=== PATIENT | male | born 1945 | race Caucasian/White ===

== ENCOUNTER 2019-06-29 05:41 | Day surgery (SDC) | payer MEDICARE ==
[2019-06-25 11:07] LABS: BASOPHILS # (AUTO) 0.1 X10'3 (0-0.2); BASOPHILS % (AUTO) 1.2 % (0-1); EOSINOPHILS # (AUTO) 0.1 X10'3 (0-0.9); LYMPHOCYTES # (AUTO) 1.3 X10'3 (1.1-4.8); LYMPHOCYTES % (AUTO) 20.8 % (21-51); MEAN CORPUSCULAR HEMOGLOBIN 32.4 PG (27.0-31.0); MEAN CORPUSCULAR HGB CONC 33.8 g/dL (33.0-36.5); MEAN CORPUSCULAR VOLUME 95.7 FL (78-98); MONOCYTES # (AUTO) 0.6 X10'3 (0-0.9); MONOCYTES % (AUTO) 9.5 % (2-12); NEUTROPHILS # (AUTO) 4.2 X10'3 (1.8-7.7); NEUTROPHILS % (AUTO) 66.5 % (42-75); PRE OP HEMATOCRIT 40.9 % (42.0-52.0); PRE OP HEMOGLOBIN 13.8 g/dL (14.0-17.9); PRE OP PLATELET COUNT 154 X10'3 (140-440); RED BLOOD COUNT 4.27 X10'6 (4.70-6.10); RED CELL DISTRIBUTION WIDTH 14.9 % (11.5-14.5)
[2019-06-25 11:21] LABS: ALBUMIN 3.7 G/DL (3.4-5.0); ALBUMIN/GLOBULIN RATIO 0.9 (1.1-1.5); ALKALINE PHOSPHATASE 125 IU/L (46-116); BLOOD UREA NITROGEN 21 MG/DL (7-18); BUN/CREATININE RATIO 11.6 (5.4-32.0); CALCIUM 9.1 MG/DL (8.5-10.1); CHLORIDE 106 MMOL/L (99-107); CREATININE 1.81 MG/DL (0.60-1.10); PRE OP ALT 28 U/L (30-65); PRE OP ANION GAP 10 (8-16); PRE OP AST 25 U/L (10-37); PRE OP BILIRUB, TOTAL 2.3 MG/DL (0.0-1.0); PRE OP GLUCOSE 114 MG/DL (70-104); PRE OP POTASSIUM 3.9 MMOL/L (3.4-5.1); PRE OP SODIUM 146 MMOL/L (135-145); TOTAL PROTEIN 7.6 G/DL (6.4-8.2); eGFR 37 ML/MIN
[2019-06-25 11:32] LABS: PRE OP INR 2.3 INR
[2019-06-29] VITALS (7 sets, daily range): BP systolic 117–135; BP diastolic 64–75
[~2019-06-29] VITALS: Ht 177.8 cm; Wt 90.7 kg
[~2019-06-29 05:41] MED LIST: AMLO2.5T2 PO; ATOR40TA PO; COU4T PO; DOCUMENT DATE & TIME OF BETA-BLOCKER PO ONE; FERR324T4 PO; FURO40TA4 PO; GABA-532 PO; GLIP2.5T3 PO; LISI40TA4 PO; METO50TA7 PO; VIT D2 PO; cefazolin/dext.iso 2gm/100 ML IV ONE; famotidine 20mg tablet PO ONE; ringers solution, lacted 1,000 ML IV SCH
[2019-06-29] MEDS ORDERED: LIDOcaine 1% (10mg/ml) 2ml vial ONE (06:07)
[2019-06-29 07:15] LABS: PRE OP PROTIME 25.5 SECONDS (9.0-12.0)
[2019-06-29] MEDS ORDERED: ringers solution, lacted 1,000 ML IV SCH (07:32)
[2019-06-29] MEDS ORDERED: morphine 4 MG/ML inj SYRINge IV PRN ×2 (07:35)
[2019-06-29] MEDS ORDERED: labetalol 20mg/4ml (5mg/ml) syringe IV PRN (07:35)
[2019-06-29] MEDS ORDERED: fentaNYL/PF 50MCG/1 ML 2ML syringe IV PRN ×2 (07:35)
[2019-06-29] MEDS ORDERED: ondansetron/PF 4mg/2ml inj IV PRN (07:35)
[2019-06-29] MEDS ORDERED: hydrALAZINE 20mg/ml inj. IV PRN (07:35)
[2019-06-29] MEDS ORDERED: LIDOcaine 0.5% (5mg/ml) 50ml vial ONE (07:36)
[2019-06-29 07:52] LABS: PRE OP INR 2.6 INR
[2019-06-29] MEDS ORDERED: BUPIVAcaine/PF 2.5mg/ml (0.25%) 10ml vial ONE (08:47)
[2019-06-29] MEDS ORDERED: MIDAZolam 5mg/5ml vial ONE (09:48)
[2019-06-29] MEDS ORDERED: fentaNYL/PF 50MCG/1 ML 2ML syringe ONE (09:48)
[2019-06-29] MEDS ORDERED: propofol inj 20 ML IV ONE (09:49)
[2019-06-29] MEDS ORDERED: LIDOcaine 2% (20mg/ml) 5ml vial ONE (09:49)
--- NOTE | 2019-06-29 10:15 | NUR ---
ADMITTED TO PACU FROM OR ACCOMPANIED BY ANESTHESIA. INTIAL PHYSICAL ASSESSMENT DONE AND RECORDED. AWAKE AND RESPONSE ON ARRIVE YO PACU, REPORT RECEIVED FROM ANESTHESIA.
--- NOTE | 2019-06-29 11:10 | NUR ---
Discharge criteria met, discharge instructions given, demonstrates verbal understanding. Discharged home in good condition.
== END 2019-06-29 11:10 | disposition home or self-care (01) ==
LOC: PAS 05:41
PROVIDERS: ATTEND Orthopaedic Surgery Hand Surgery
DX: G56.03 Carpal tunnel syndrome, bilateral upper limbs (principal); I10 Essential (primary) hypertension; I25.2 Old myocardial infarction; E11.9 Type 2 diabetes mellitus without complications; M19.90 Unspecified osteoarthritis, unspecified site; E78.00 Pure hypercholesterolemia, unspecified; E66.9 Obesity, unspecified; Z68.30 Body mass index [BMI] 30.0-30.9, adult; Z95.0 Presence of cardiac pacemaker; Z95.5 Presence of coronary angioplasty implant and graft; Z79.84 Long term (current) use of oral hypoglycemic drugs; Z79.899 Other long term (current) drug therapy; Z79.01 Long term (current) use of anticoagulants; Z98.890 Other specified postprocedural states
CPT/HCPCS: 36415; 64721; 80053; 82948; 85025; 85610; 85730; J2001; J2250; J2704; J3010; J3490; A4215; J7120

== ENCOUNTER 2019-08-10 05:49 | Day surgery (SDC) | payer MEDICARE ==
[~2019-08-10] VITALS: Ht 177.8 cm; Wt 94.0 kg
[2019-08-10] VITALS (7 sets, daily range): BP systolic 91–128; BP diastolic 57–68
[~2019-08-10 05:49] MED LIST changes: -cefazolin/dext.iso 2gm/100 ML IV ONE; +cefazolin/dext.iso 2gm/50ml 50 ML IV ONE
[2019-08-10] MEDS ORDERED: BUPIVAcaine/PF 2.5mg/ml (0.25%) 10ml vial ONE (06:36)
[2019-08-10] MEDS ORDERED: LIDOcaine 0.5% (5mg/ml) 50ml vial ONE (07:06)
[2019-08-10] MEDS ORDERED: ringers solution, lacted 1,000 ML IV SCH (07:18)
[2019-08-10] MEDS ORDERED: meperidine/PF 25mg/ml syringe IV PRN ×3 (07:20)
[2019-08-10] MEDS ORDERED: ondansetron/PF 4mg/2ml inj IV PRN (07:20)
[2019-08-10] MEDS ORDERED: proCHLORperazine 10 MG/2 ml inj IV PRN (07:20)
[2019-08-10] MEDS ORDERED: morphine 4 MG/ML inj SYRINge IV PRN ×2 (07:20)
[2019-08-10 07:45] LABS: BASOPHILS # (AUTO) 0.1 X10'3 (0-0.2); BASOPHILS % (AUTO) 1.1 % (0-1); EOSINOPHILS # (AUTO) 0.1 X10'3 (0-0.9); EOSINOPHILS % (AUTO) 2.9 % (0-6); HEMATOCRIT 36.2 % (42.0-52.0); HEMOGLOBIN 12.1 g/dl (14.0-17.9); LYMPHOCYTES # (AUTO) 0.6 X10'3 (1.1-4.8); LYMPHOCYTES % (AUTO) 12.4 % (21-51); MEAN CORPUSCULAR HEMOGLOBIN 32.8 PG (27.0-31.0); MEAN CORPUSCULAR HGB CONC 33.5 g/dL (33.0-36.5); MEAN CORPUSCULAR VOLUME 98.1 FL (78-98); MEAN PLATELET VOLUME 8.7 FL (7.4-10.4); MONOCYTES # (AUTO) 0.6 X10'3 (0-0.9); MONOCYTES % (AUTO) 11.8 % (2-12); NEUTROPHILS # (AUTO) 3.6 X10'3 (1.8-7.7); NEUTROPHILS % (AUTO) 71.8 % (42-75); PLATELET COUNT 101 X10'3 (140-440); RED BLOOD COUNT 3.69 X10'6 (4.70-6.10); RED CELL DISTRIBUTION WIDTH 14.3 % (11.5-14.5)
[2019-08-10 07:58] LABS: ALANINE AMINOTRANSFERASE 25 U/L (12-78); ALBUMIN 3.4 G/DL (3.4-5.0); ALKALINE PHOSPHATASE 113 IU/L (46-116); ANION GAP 7 (8-16); ASPARTATE AMINO TRANSFERASE 27 U/L (10-37); BILIRUBIN,TOTAL 1.4 MG/DL (0.1-1.0); BLOOD UREA NITROGEN 27 MG/DL (7-18); CALCIUM 8.6 MG/DL (8.5-10.1); CHLORIDE 109 MMOL/L (99-107); GLUCOSE 148 MG/DL (70-104); SODIUM 145 MMOL/L (135-145); TOTAL CARBON DIOXIDE 29.1 MMOL/L (24-32); TOTAL PROTEIN 6.8 G/DL (6.4-8.2); eGFR 37 ML/MIN
[2019-08-10] MEDS ORDERED: fentaNYL/PF 50MCG/1 ML 2ML syringe ONE (08:51)
[2019-08-10] MEDS ORDERED: midazolam 2 mg/2 ml injection ONE (08:53)
--- NOTE | 2019-08-10 09:11 | NUR ---
Received from OR via , accompanied by Anesthesiologist DR ECHOLS and report given by Anesthesiolgist. AWAKENS TO VOICE. VITALS STABLE. DRESSING SDI. PARAS PAIN. FINGERS COOL AND PINK.
--- NOTE | 2019-08-10 10:11 | NUR ---
AWAKE AND ORIENTED. VITALS STABLE. DRESSING DI. PARAS PAIN. HOME WITH HIS AT THIS TIME.
== END 2019-08-10 10:11 | disposition home or self-care (01) ==
LOC: PAS 05:49
PROVIDERS: ATTEND Orthopaedic Surgery Hand Surgery
DX: G56.02 Carpal tunnel syndrome, left upper limb (principal); I10 Essential (primary) hypertension; I25.10 Atherosclerotic heart disease of native coronary artery without angina pectoris; I27.20 Pulmonary hypertension, unspecified; E11.9 Type 2 diabetes mellitus without complications; I25.2 Old myocardial infarction; Z95.0 Presence of cardiac pacemaker; Z98.890 Other specified postprocedural states; Z85.828 Personal history of other malignant neoplasm of skin; Z95.5 Presence of coronary angioplasty implant and graft; Z79.899 Other long term (current) drug therapy; Z79.01 Long term (current) use of anticoagulants; Z79.84 Long term (current) use of oral hypoglycemic drugs
CPT/HCPCS: 36415; 64721; 80053; 82948; 85025; J2001; J2250; J3010; J3490; A4215; J7120

== ENCOUNTER 2021-12-11 09:40 | Inpatient (IN) | payer MEDICARE ==
[~2021-12-11] VITALS: Ht 177.8 cm; Wt 91.0 kg
[~2021-12-11 09:40] MED LIST changes: -DOCUMENT DATE & TIME OF BETA-BLOCKER PO ONE; +LISI40TA13 PO; -LISI40TA4 PO; -cefazolin/dext.iso 2gm/50ml 50 ML IV ONE; -famotidine 20mg tablet PO ONE; -ringers solution, lacted 1,000 ML IV SCH
[2021-12-11 10:20] LABS: BASOPHILS % (AUTO) 0.7 % (0-1); EOSINOPHILS # (AUTO) 0.2 X10'3 (0-0.9); HEMATOCRIT 36.9 % (42.0-52.0); HEMOGLOBIN 12.1 g/dl (14.0-17.9); LYMPHOCYTES # (AUTO) 0.6 X10'3 (1.1-4.8); LYMPHOCYTES % (AUTO) 14.8 % (21-51); MEAN CORPUSCULAR HEMOGLOBIN 32.1 PG (27.0-31.0); MEAN CORPUSCULAR HGB CONC 32.9 g/dL (33.0-36.5); MEAN CORPUSCULAR VOLUME 97.4 FL (78-98); MEAN PLATELET VOLUME 9.1 FL (7.4-10.4); MONOCYTES # (AUTO) 0.3 X10'3 (0-0.9); MONOCYTES % (AUTO) 7.6 % (2-12); NEUTROPHILS # (AUTO) 3.1 X10'3 (1.8-7.7); NEUTROPHILS % (AUTO) 71.9 % (42-75); PLATELET COUNT 98 X10'3 (140-440); RED BLOOD COUNT 3.78 X10'6 (4.70-6.10); RED CELL DISTRIBUTION WIDTH 15.3 % (11.5-14.5); WHITE BLOOD COUNT 4.3 X10'3 (4.5-11.0)
[2021-12-11 10:34] LABS: ALANINE AMINOTRANSFERASE 24 U/L (12-78); ALBUMIN 3.4 G/DL (3.4-5.0); ALBUMIN/GLOBULIN RATIO 0.8 (1.1-1.5); ALKALINE PHOSPHATASE 154 IU/L (46-116); ANION GAP 10 (8-16); ASPARTATE AMINO TRANSFERASE 26 U/L (10-37); BILIRUBIN,TOTAL 2.2 MG/DL (0.1-1.0); BLOOD UREA NITROGEN 44 MG/DL (7-18); BUN/CREATININE RATIO 20.2 (5.4-32.0); CALCIUM 9.3 MG/DL (8.5-10.1); CHLORIDE 107 MMOL/L (99-107); CREATININE 2.18 MG/DL (0.60-1.10); GLUCOSE 157 MG/DL (70-104); POTASSIUM 3.9 MMOL/L (3.5-5.1); SODIUM 146 MMOL/L (135-145); TOTAL CARBON DIOXIDE 29.3 MMOL/L (24-32); TOTAL PROTEIN 7.9 G/DL (6.4-8.2); eGFR 30 ML/MIN
[2021-12-11 10:50] LABS: ANISOCYTOSIS 1+; PLATELET ESTIMATE DECREASED
[2021-12-11 10:51] LABS: ACANTHOCYTES FEW; BURR CELLS FEW; ELLIPTOCYTES FEW; TEAR DROP CELLS FEW
[2021-12-11] MEDS ORDERED: ERGO500056 PO (12:02)
[2021-12-11] MEDS ORDERED: GLIP5TAB13 PO (12:02)
[2021-12-11] MEDS ORDERED: LOSA100T57 PO (12:02)
[2021-12-11] MEDS ORDERED: potassium CL 10mEq/100ml bag 100 ML IV PRN (12:15)
[2021-12-11] MEDS ORDERED: magnesium 2GM in 50ml NS 50 ML IV PRN (12:15)
[2021-12-11] MEDS ORDERED: dextrose 50%-water 50ml dispensing syringe IV PRN ×2 (12:15)
[2021-12-11] MEDS ORDERED: MESSAGE TO PHARMACY PO ONE (12:15)
[2021-12-11] MEDS ORDERED: PERFLUTREN PROTEIN-A MICROSPHR (Optison) 0.22 MG/ML 3ML VIAL IV ONE (12:15)
[2021-12-11] MEDS ORDERED: magnesium 4gm in 100ml NS 100 ML IV PRN (12:15)
[2021-12-11] MEDS ORDERED: ipratropium/albuterol 3ml nebule NEB PRN (12:15)
[2021-12-11] MEDS ORDERED: DEXTROSE 15 GM of carb/4 tabs (each vial/BOTTLE has 4 tablets) PO PRN ×2 (12:15)
[2021-12-11] MEDS ORDERED: ondansetron/PF 4mg/2ml inj IV PRN (12:15)
[2021-12-11] MEDS ORDERED: acetaminophen 325mg tablet PO PRN (12:15)
[2021-12-11] MEDS ORDERED: albuterol 2.5 MG/3 ML nebule NEB PRN (12:15)
[2021-12-11] MEDS ORDERED: insulin Lispro (HumaLOG) vial - multi-dose SQ SCH (12:15)
[2021-12-11] MEDS ORDERED: glucagon, human recombinant 1mg kit SUBCUT PRN (12:15)
[2021-12-11] MEDS ORDERED: potassium Cl 20 mEq SR tablet PO PRN ×2 (12:15)
[2021-12-11] MEDS ORDERED: furosemide 10 MG/1 ML 10ml inj IV ONE (12:25)
[2021-12-11 12:50] LABS: HEMOGLOBIN A1C 7.4 % (4.5-6.2)
[2021-12-11 18:00] VITALS: BP 132/77
[2021-12-11] MEDS: K and/or MAG REPLACEMENT MC SCH (20:00)
[2021-12-11] MEDS ORDERED: enoxaparin 40mg/0.4ml syringe SQ SCH (20:00)
[2021-12-11] MEDS ORDERED: gabapentin 300mg capsule PO SCH (21:00)
[2021-12-11] MEDS ORDERED: insulin glargine (Lantus) pen - multi-dose SQ SCH (21:00)
[2021-12-11] MEDS: docusate sod 100mg capsule PO SCH (21:42)
[2021-12-11 22:00] VITALS: BP 122/51
[2021-12-12 02:00] VITALS: BP 127/64
[2021-12-12 05:45] LABS: BASOPHILS # (AUTO) 0.1 X10'3 (0-0.2); BASOPHILS % (AUTO) 1.4 % (0-1); EOSINOPHILS # (AUTO) 0.3 X10'3 (0-0.9); EOSINOPHILS % (AUTO) 6.6 % (0-6); HEMOGLOBIN 11.5 g/dl (14.0-17.9); LYMPHOCYTES # (AUTO) 0.7 X10'3 (1.1-4.8); LYMPHOCYTES % (AUTO) 18.2 % (21-51); MEAN CORPUSCULAR HEMOGLOBIN 32.1 PG (27.0-31.0); MEAN CORPUSCULAR HGB CONC 32.9 g/dL (33.0-36.5); MEAN CORPUSCULAR VOLUME 97.6 FL (78-98); MEAN PLATELET VOLUME 9.1 FL (7.4-10.4); MONOCYTES # (AUTO) 0.3 X10'3 (0-0.9); MONOCYTES % (AUTO) 8.3 % (2-12); NEUTROPHILS # (AUTO) 2.6 X10'3 (1.8-7.7); NEUTROPHILS % (AUTO) 65.5 % (42-75); PLATELET COUNT 89 X10'3 (140-440); RED BLOOD COUNT 3.59 X10'6 (4.70-6.10); RED CELL DISTRIBUTION WIDTH 15.9 % (11.5-14.5)
[2021-12-12 05:48] LABS: ALANINE AMINOTRANSFERASE 19 U/L (12-78); ALBUMIN 3.1 G/DL (3.4-5.0); ALBUMIN/GLOBULIN RATIO 0.7 (1.1-1.5); ALKALINE PHOSPHATASE 134 IU/L (46-116); ANION GAP 12 (8-16); ASPARTATE AMINO TRANSFERASE 24 U/L (10-37); BILIRUBIN,TOTAL 2.4 MG/DL (0.1-1.0); BLOOD UREA NITROGEN 45 MG/DL (7-18); BUN/CREATININE RATIO 21.1 (5.4-32.0); CALCIUM 9.2 MG/DL (8.5-10.1); CHLORIDE 108 MMOL/L (99-107); CREATININE 2.13 MG/DL (0.60-1.10); GLUCOSE 82 MG/DL (70-104); MAGNESIUM 2.3 MG/DL (1.5-2.4); POTASSIUM 3.6 MMOL/L (3.5-5.1); SODIUM 149 MMOL/L (135-145); TOTAL PROTEIN 7.5 G/DL (6.4-8.2); eGFR 31 ML/MIN
[2021-12-12 06:00] VITALS: BP 114/62
--- NOTE | 2021-12-12 06:10 | NUR ---
received report from carolina friedman
--- NOTE | 2021-12-12 06:15 | NUR ---
Problems reprioritized. Patient report given, Ling COUCH ,questions answered & plan of care reviewed with . Addendum: 12/12/21 at 0732 by Hillary Haskins RN [facility] nurse
--- NOTE | 2021-12-12 06:15 | NUR ---
Problems reprioritized. Patient report given, to Navid COUCH, questions answered & plan of care reviewed with .
[2021-12-12] MEDS: K and/or MAG REPLACEMENT MC SCH (07:13)
[2021-12-12] MEDS ORDERED: atorvastatin 20mg tablet PO SCH (08:00)
[2021-12-12] MEDS ORDERED: losartan 50mg tablet PO SCH (08:00)
[2021-12-12] MEDS ORDERED: metoprolol succinate 25mg (24-HOUR) SR. Tablet PO SCH (08:00)
[2021-12-12] MEDS ORDERED: furosemide 10 MG/1 ML 10ml inj IV SCH (08:00)
[2021-12-12] MEDS: docusate sod 100mg capsule PO SCH (08:06)
--- NOTE | 2021-12-12 09:07 | NUR ---
Student Medication Administration: For this medication-pass time frame, all medication were reviewed, dispensed, administered and documented per hospital policy by tulio Ramsay student.
--- NOTE | 2021-12-12 09:07 | NUR ---
Student documentation: I have reviewed and agree with all interventions, assessments performed and documented by Sobia, nursing unit clerk.
--- NOTE | 2021-12-12 09:52 | NUR ---
Diabetes consult: Noted pt w/ hx of DM A1c 7.4, fair control for age. written DM ed w/ RD contact info placed in pt chart. Addendum: 12/12/21 at [address] Amended: Links added.
--- NOTE | 2021-12-12 10:43 | NUR ---
pt ambulated 300ft w/fww with at side, pt did this independently w/out nursing staff at side
[2021-12-12 11:13] VITALS: BP_SYST 106; BP_SYST 121; BP_SYST 124; BP_DIAS 53; BP_DIAS 64; BP_DIAS 69
[2021-12-12 12:00] VITALS: BP 106/69
[2021-12-12] MEDS ORDERED: amiodarone 200mg tablet PO SCH (13:15)
[2021-12-12] MEDS ORDERED: AMIO200T67 PO (14:53)
[2021-12-12 15:00] VITALS: BP 120/55
--- NOTE | 2021-12-12 16:14 | NUR ---
pt d/c with instructions, understanding of instructions and w/all belongings in wheelchair accompanied by nursing staff to private vehicle to f/u w/meeting planner
[2021-12-12] MEDS ORDERED: apixaban 5mg tablet PO SCH (20:00)
== END 2021-12-12 15:55 | disposition home or self-care (01) | DRG 291 ==
LOC: ER 09:40 → ED HOLD 12:23 → PCU 3S 17:45
PROVIDERS: ADMIT Family Medicine; ATTEND Family Medicine
DX: I13.0 Hypertensive heart and chronic kidney disease with heart failure and stage 1 through stage 4 chronic kidney disease, or unspecified chronic kidney disease (principal); I50.23 Acute on chronic systolic (congestive) heart failure; I48.20 Chronic atrial fibrillation, unspecified; N17.9 Acute kidney failure, unspecified; N18.4 Chronic kidney disease, stage 4 (severe); E87.0 Hyperosmolality and hypernatremia; Z20.822 Contact with and (suspected) exposure to COVID-19; I42.0 Dilated cardiomyopathy; R00.1 Bradycardia, unspecified; E11.51 Type 2 diabetes mellitus with diabetic peripheral angiopathy without gangrene; E11.22 Type 2 diabetes mellitus with diabetic chronic kidney disease; E78.00 Pure hypercholesterolemia, unspecified; E78.5 Hyperlipidemia, unspecified; Z79.01 Long term (current) use of anticoagulants; Z79.84 Long term (current) use of oral hypoglycemic drugs; Z79.899 Other long term (current) drug therapy; Z80.6 Family history of leukemia; Z95.0 Presence of cardiac pacemaker
CPT/HCPCS: 36415; 71045; 80053; 82948; 83036; 83735; 83880; 84439; 84443; 84484; 85008; 85025; 85610; 87635; 93005; 93306; 94760; 99285; C9803; G0378; J1650; J1815; J1940